=== PATIENT | male | born 1985 | race African-American/Black ===

== ENCOUNTER 2018-06-06 14:21 | Emergency (ER) | payer BC ==
[2018-06-06 15:02] VITALS: BP 120/78
--- NOTE | 2018-06-06 15:15 | UC ---
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 not changed. not painful. - History of Current Complaint Chief Complaint: UCSkin Time Seen by Provider: 06/06/18 15:10 Stated Complaint: SKIN COMPLAINT CHEST/LEFT SIDE Pain Intensity: 0 - Allergy/Home Medications Allergies/Adverse Reactions: Allergies Allergy/AdvReac Type Severity Reaction Status Date / Time No Known Allergies Allergy Verified 06/06/18 14:55 Home Medications: Home Medications Essential Oils 1 udc PO SEE INSTRUCTIONS PRN 06/06/18 [History] Multivitamin [Multivitamins] 1 cap PO DAILY 06/06/18 [History Confirmed 06/06/18 ] Review of Systems Constitutional: Negative Skin: Other Eyes: Negative ENT: Negative Respiratory: Negative Cardiovascular: Negative Gastrointestinal: Negative Genitourinary: Negative Motor: Negative Neurovascular: Negative Musculoskeletal: Negative Neurological: Negative Psychological: Negative Is Patient Immunocompromised?: No All Other Systems Reviewed And Are Negative: Yes PMH/Surg Hx/FS Hx/Imm Hx Previously Healthy: Yes - Surgical History Surgical History: None - Family History Known Family History: Positive: Diabetes, Other - Mom breast ca. maternal aunt d/t ? ovarian ca - Social History Alcohol Use: Weekly Substance Use Type: None Smoking Status (MU): Never Smoked Tobacco Physical Exam Triage Information Reviewed: Yes Appearance: Well-Appearing, No Pain Distress, Well-Nourished - very pleasant Vital Signs: Initial Vital Signs Temp 97.8 F 06/06/18 14:58 Pulse 59 06/06/18 14:58 Resp 12 06/06/18 14:58 BP 120/78 06/06/18 14:58 Pulse Ox 100 06/06/18 14:58 Respiratory Exam: Normal Respiratory: Positive: Lungs clear Cardiovascular Exam: Normal Cardiovascular: Positive: RRR Musculoskeletal Exam: Normal Neurological Exam: Normal Psychological Exam: Normal Skin: Positive: Other - Dark skin. mid chest with ~ 2cm x 1 cm flesh colored raised linear lesion. Cool to touch. no d/c. shiny. no erythema. left lower thoracic lateral/axillary faintly visble lesion ~ size of golf ball. well circumscribed, soft, freely mobile, not fixed. cool to touch. no erythema. Course/Dx - Course Course Of Treatment: lipoma, keloid. -non-concerning lesions. disc very low chance of cancer in lipoma. can have surgically removed to confrim dx. Name of surgeon has been given to pt. - Differential Diagnoses - Skin Complaint Differential Diagnoses: Other - lipoma, nevus - Diagnoses Provider Diagnoses: chest keloid scar. left upper abdomen lipoma Discharge - Sign-Out/Discharge Documenting (check all that apply): Patient Departure All imaging exams completed and their final reports reviewed: No Studies - Discharge Plan Condition: Stable Disposition: HOME Patient Education Materials: Lipoma (ED) Referrals: No Primary Care Phys,NOPCP [Primary Care Provider] - Juan Garcia MD [Medical Doctor] - If Needed Additional Instructions: The area of concern on your mid chest wall is considered to be a scar that is common in [place] areas, called either hyperkeratotic scarring or keloids. You can call the general surgeon to have the left sided lipoma. There is a very low chance of potential cancer of this lesion. - Billing Disposition and Condition Condition: STABLE Disposition: Home
== END 2018-06-06 15:25 | disposition home or self-care (01) ==
LOC: UCCORT 14:21
DX: L91.0 Hypertrophic scar (principal); D17.1 Benign lipomatous neoplasm of skin and subcutaneous tissue of trunk
CPT/HCPCS: 99201; G0463